=== PATIENT | male | born 1970 | race Two or more races ===

== ENCOUNTER 2017-03-28 13:03 | Emergency (ER) | payer SELFPAY ==
[~2017-03-28] VITALS: Ht 160 cm; Wt 91.0 kg
[2017-03-28] MEDS ORDERED: ONDANSETRON HCL 4MG/2ML VIAL IV STA (15:30)
[2017-03-28] MEDS ORDERED: FAMOTIDINE 20MG/2ML VIAL IV STA (15:30)
[2017-03-28] MEDS ORDERED: MORPHINE SULFATE 4 MG/ML CPJ (NOT FOR IM USE) IV STA (15:30)
[2017-03-28] MEDS ORDERED: SODIUM CHLORIDE 0.9% 1,000 ML IV ONE (15:30)
[2017-03-28 16:45] LABS: BASOPHILS % 0.4 % (0.0-2.0); HEMOGLOBIN. 12.6 g/dL (14.0-18.0); LYMPHOCYTES % 45.2 % (20.0-50.0); MEAN CORPUSCULAR HEMOGLOBIN 34.6 pg (28.0-32.0); MEAN CORPUSCULAR VOLUME 98.9 fL (80.0-94.0); MEAN PLATELET VOLUME 7.6 fl (7.4-10.4); MONOCYTES % 6.1 % (2.0-8.0); NEUTROPHILS % 47.3 % (40.0-76.0); PLATELET 236 x1000/uL (130-400); RED BLOOD CELL COUNT 3.64 mill/uL (4.7-6.1); RED CELL DISTRIBUTION WIDTH 13.3 % (11.6-14.6)
[2017-03-28 17:00] LABS: CARBON DIOXIDE 22 mEq/L (21-32); CHLORIDE 112 mEq/L (98-107); ETHANOL BLOOD 210 mg/dL
[2017-03-28 18:10] VITALS: BP 109/64
== END 2017-03-28 18:16 | disposition home or self-care (01) ==
LOC: ER 14:34
DX: K29.20 Alcoholic gastritis without bleeding (principal); F10.10 Alcohol abuse, uncomplicated; Y90.7 Blood alcohol level of 200-239 mg/100 ml; F17.200 Nicotine dependence, unspecified, uncomplicated
CPT/HCPCS: 36415; 76705; 80053; 83690; 85025; 96361; 96374; 96375; 99285; G0482; J2270; J2405; J3490; J7030; Z7610

== ENCOUNTER 2024-12-26 03:52 | Inpatient (IN) | payer SELFPAY ==
[~2024-12-26] VITALS: Ht 170.2 cm; Wt 106.7 kg
[2024-12-26 05:09] LABS: HEMATOCRIT. 39.4 % (42.0-52.0); HEMOGLOBIN. 13.6 g/dL (14.0-18.0); MEAN CORPUSCULAR HEMOGLOBIN 34.4 pg (28.0-32.0); MEAN CORPUSCULAR HGB CONC 34.4 g/dL (31.0-37.0); MEAN PLATELET VOLUME 7.1 fl (7.4-10.4); PLATELET 416 x1000/uL (130-400); RED BLOOD CELL COUNT 3.94 mill/uL (4.7-6.1); WHITE BLOOD COUNT 11.1 x1000/uL (4.5-11.0)
[2024-12-26 05:10] LABS: CHLORIDE 104 mEq/L (98-107); POTASSIUM 4.1 mEq/L (3.5-5.1); SODIUM 133 mEq/L (136-145)
[2024-12-26 05:12] LABS: CALCIUM 9.4 mg/dL (8.7-10.4); CARBON DIOXIDE 20 mEq/L (21-32)
[2024-12-26 05:17] LABS: CREATININE 0.9 mg/dL (0.6-1.3); GLUCOSE 164 mg/dL (70-105); UREA NITROGEN BLOOD 15 mg/dL (9-23)
[2024-12-26 05:18] LABS: DIFFERENTIAL COMMENT 1
[2024-12-26 05:41] LABS: CLARITY URINE CLOUDY (CLEAR); COLOR URINE YELLOW (YELLOW); GLUCOSE URINE NEGATIVE (NEGATIVE); KETONES URINE NEGATIVE (NEGATIVE); LEUKOCYTE ESTERASE URINE 3+ (NEGATIVE); NITRITE URINE NEGATIVE (NEGATIVE); OCCULT BLOOD URINE 1+ (NEGATIVE); PH URINE >=9.0 (4.5-8.0); PROTEIN URINE 1+ (NEGATIVE); SPECIFIC GRAVITY URINE 1.011 (1.005-1.030); UROBILINOGEN URINE 0.2 E.U./dL (0.2-1.0)
[2024-12-26 05:58] LABS: PLATELET ESTIMATE SLIGHTLY INCREASED
[2024-12-26] MEDS: PIPERACILLIN/TAZO 3.375G/50ML 50 ML IV ONE (06:05)
[2024-12-26] MEDS: SODIUM CHLORIDE 0.9% (SEPSIS BOLUS) IV ONE (06:05)
[2024-12-26 06:06] LABS: RBC URINE 0-2 /hpf (0-2)
[2024-12-26 06:07] LABS: BACTERIA URINE 3+; SQUAMOUS EPITHELIAL CELL URINE NONE SEEN /lpf (RARE/1+)
[2024-12-26 06:09] LABS: TRIPLE PHOSPHATE CRYSTAL URINE 1+ /lpf
[2024-12-26 06:26] LABS: CHLORIDE 105 mEq/L (98-107); POTASSIUM 3.9 mEq/L (3.5-5.1); SODIUM 135 mEq/L (136-145)
[2024-12-26 06:27] LABS: CARBON DIOXIDE 21 mEq/L (21-32)
[2024-12-26 06:28] LABS: CALCIUM 9.3 mg/dL (8.7-10.4)
[2024-12-26 06:32] LABS: CREATININE 0.9 mg/dL (0.6-1.3); GLUCOSE 142 mg/dL (70-105)
[2024-12-26 06:33] LABS: UREA NITROGEN BLOOD 14 mg/dL (9-23)
[2024-12-26 06:34] LABS: ALANINE AMINOTRANSFERASE 33 IU/L (10-49); ALBUMIN 4.6 g/dL (3.2-4.8); ASPARTATE AMINOTRANSFERASE 22 IU/L (<34)
[2024-12-26 06:35] LABS: BILIRUBIN DIRECT 0.3 mg/dL (<=3.0); BILIRUBIN TOTAL 0.9 mg/dL (0.1-1.0); PROTEIN TOTAL 8.1 g/dL (6.0-8.3)
[2024-12-26 06:43] LABS: LACTIC ACID 2.2 mmol/L (0.4-2.0); PROTHROMBIN TIME 10.9 sec (9.6-11.0)
[2024-12-26] MEDS: VANCOMYCIN 1G PREMIX 200 ML IV ONE (06:51)
[2024-12-26 09:55] VITALS: BP 148/66; PULSE 100; RESP 16; TEMP 36.6; O2SAT 98
[2024-12-26 12:00] VITALS: BP 177/83; PULSE 108; RESP 16; TEMP 36.9; O2SAT 98
[2024-12-26] MEDS ORDERED: IPRATROPIUM/ALBUTEROL 0.5-3(2.5)MG/3ML NEB HHN PRN (12:15)
[2024-12-26] MEDS ORDERED: ACETAMINOPHEN 325MG TABLET PO PRN (12:15)
[2024-12-26] MEDS ORDERED: ONDANSETRON HCL 4MG/2ML INJ IV PRN (12:15)
[2024-12-26] MEDS ORDERED: DOCUSATE SODIUM 100MG CAPSULE PO PRN (12:15)
[2024-12-26 12:19] VITALS: BP 148/68; PULSE 100; RESP 18; TEMP 36.6
[2024-12-26] MEDS: CLONIDINE 0.1MG TABLET PO PRN (12:47)
[2024-12-26] MEDS: TAMSULOSIN HCL 0.4MG SR CAPSULE PO SCH (12:47)
[2024-12-26] MEDS: FINASTERIDE 5MG TABLET PO SCH (12:47)
[2024-12-26 14:37] LABS: FOLIC ACID (FOLATE) SERUM 19.58 ng/mL (>5.38); VITAMIN B12 SERUM 420 pg/mL (211-911)
[2024-12-26] MEDS: CEFTRIAXONE 1GM/50ML 50 ML IV SCH (14:47)
[2024-12-26 16:00] VITALS: BP 134/65; PULSE 80; RESP 17; TEMP 37.4; O2SAT 96
[2024-12-26 20:00] VITALS: BP 128/69; PULSE 98; RESP 20; TEMP 36.4; O2SAT 100
[2024-12-26 21:38] VITALS: BP 128/69; PULSE 98; RESP 20; TEMP 36.4; O2SAT 100
[2024-12-27] VITALS: BP 94/58; PULSE 82; RESP 16; TEMP 36.3; O2SAT 100
[2024-12-27 04:00] VITALS: BP 134/80; PULSE 86; RESP 19; TEMP 36.4; O2SAT 97
[2024-12-27 06:20] LABS: CALCIUM 8.4 mg/dL (8.7-10.4); CARBON DIOXIDE 21 mEq/L (21-32); CHLORIDE 105 mEq/L (98-107); CREATININE 0.9 mg/dL (0.6-1.3); POTASSIUM 3.2 mEq/L (3.5-5.1); SODIUM 135 mEq/L (136-145)
[2024-12-27 06:24] LABS: GLUCOSE 121 mg/dL (70-105)
[2024-12-27 06:26] LABS: UREA NITROGEN BLOOD 14 mg/dL (9-23)
[2024-12-27 06:43] LABS: BASOPHILS % 0.4 % (0.0-2.0); EOSINOPHILS % 0.6 % (0.0-5.0); HEMATOCRIT. 31.1 % (42.0-52.0); HEMOGLOBIN. 10.9 g/dL (14.0-18.0); LYMPHOCYTES % 15.9 % (20.0-50.0); MEAN CORPUSCULAR HEMOGLOBIN 34.5 pg (28.0-32.0); MEAN CORPUSCULAR HGB CONC 34.9 g/dL (31.0-37.0); MEAN CORPUSCULAR VOLUME 98.8 fL (80.0-94.0); MEAN PLATELET VOLUME 7.6 fl (7.4-10.4); MONOCYTES % 11.8 % (2.0-8.0); NEUTROPHILS % 71.3 % (40.0-76.0); PLATELET 295 x1000/uL (130-400); RED BLOOD CELL COUNT 3.15 mill/uL (4.7-6.1); RED CELL DISTRIBUTION WIDTH 13.7 % (11.6-14.6); WHITE BLOOD COUNT 8.8 x1000/uL (4.5-11.0)
[2024-12-27 08:00] VITALS: BP 111/52; PULSE 81; RESP 18; TEMP 36.3; O2SAT 97
[2024-12-27 10:39] LABS: *AMPHETAMINES SCREEN URINE NEGATIVE (NEGATIVE); *BARBITURATES SCREEN URINE NEGATIVE (NEGATIVE); *BENZODIAZEPINES SCREEN URINE NEGATIVE (NEGATIVE); *COCAINE SCREEN URINE NEGATIVE (NEGATIVE); CANNABINOID URINE SCREEN NEGATIVE (NEGATIVE); ECSTASY MDMA SCREEN URINE NEGATIVE (NEGATIVE); METHADONE URINE SCREEN NEGATIVE (NEGATIVE); OPIATES URINE SCREEN NEGATIVE (NEGATIVE); PHENCYCLIDINE URINE SCREEN NEGATIVE (NEGATIVE)
[2024-12-27 12:00] VITALS: BP 114/60; PULSE 75; RESP 18; TEMP 36.7; O2SAT 98
[2024-12-27] MEDS: POTASSIUM CHLORIDE 20MEQ TABLET SR PO SCH (13:49)
[2024-12-27 16:00] VITALS: BP 121/61; PULSE 74; RESP 18; TEMP 36.4; O2SAT 97
[2024-12-27 20:00] VITALS: BP 114/60; PULSE 79; RESP 19; TEMP 36.4; O2SAT 98
[2024-12-28] VITALS: BP 106/84; PULSE 80; RESP 18; TEMP 37.4; O2SAT 96
[2024-12-28 04:00] VITALS: BP 109/82; PULSE 77; RESP 18; TEMP 37.2; O2SAT 97
[2024-12-28] MEDS: ACETAMINOPHEN 325MG TABLET PO PRN (04:25)
[2024-12-28 08:00] VITALS: BP 123/69; PULSE 87; RESP 16; TEMP 36.3; O2SAT 99
[2024-12-28 12:00] VITALS: BP 120/65; PULSE 83; RESP 18; TEMP 36.4; O2SAT 98
[2024-12-28 16:00] VITALS: BP 139/78; PULSE 98; RESP 18; TEMP 36.6; O2SAT 97
[2024-12-28] MEDS ORDERED: GADOTERATE MEGLUMINE 5 MMOL/10 ML VIAL IV ONE (17:44)
[2024-12-28 18:32] LABS: BASOPHILS % 0.5 % (0.0-2.0); EOSINOPHILS % 1.4 % (0.0-5.0); HEMOGLOBIN. 11.8 g/dL (14.0-18.0); LYMPHOCYTES % 22.5 % (20.0-50.0); MEAN CORPUSCULAR HEMOGLOBIN 34.2 pg (28.0-32.0); MEAN CORPUSCULAR HGB CONC 34.6 g/dL (31.0-37.0); MEAN CORPUSCULAR VOLUME 98.8 fL (80.0-94.0); MONOCYTES % 9.4 % (2.0-8.0); NEUTROPHILS % 66.2 % (40.0-76.0); PLATELET 321 x1000/uL (130-400); RED BLOOD CELL COUNT 3.44 mill/uL (4.7-6.1); RED CELL DISTRIBUTION WIDTH 13.4 % (11.6-14.6); WHITE BLOOD COUNT 6.4 x1000/uL (4.5-11.0)
[2024-12-28 18:36] LABS: CHLORIDE 106 mEq/L (98-107); POTASSIUM 3.3 mEq/L (3.5-5.1); SODIUM 137 mEq/L (136-145)
[2024-12-28 18:37] LABS: CARBON DIOXIDE 26 mEq/L (21-32)
[2024-12-28 18:38] LABS: CALCIUM 8.5 mg/dL (8.7-10.4)
[2024-12-28 18:42] LABS: CREATININE 0.7 mg/dL (0.6-1.3); GLUCOSE 140 mg/dL (70-105); UREA NITROGEN BLOOD 11 mg/dL (9-23)
[2024-12-28 20:00] VITALS: BP 128/64; PULSE 89; RESP 17; TEMP 36.9; O2SAT 100
[2024-12-29] VITALS: BP 112/63; PULSE 68; RESP 17; TEMP 36.6; O2SAT 100
[2024-12-29 04:00] VITALS: BP 125/61; PULSE 81; RESP 16; TEMP 36.9; O2SAT 100
[2024-12-29] MEDS ORDERED: PROPOFOL 200MG/20ML VIAL IV ONE (07:43)
[2024-12-29] MEDS ORDERED: MIDAZOLAM HCL 2 MG/2 ML VIAL ONE (07:43)
[2024-12-29] MEDS ORDERED: LIDOCAINE HCL/PF 1% 10 MG/ML 5ML VIAL ONE (07:43)
[2024-12-29] MEDS ORDERED: FENTANYL CITRATE/PF 50MCG/ML 2ML VIAL ONE (07:52)
[2024-12-29 08:00] VITALS: BP 139/78; PULSE 98; RESP 17; TEMP 36.6; O2SAT 97
[2024-12-29] MEDS ORDERED: NALOXONE HCL 0.4MG/ML 1ML VIAL IV PRN (08:45)
[2024-12-29] MEDS ORDERED: LABETALOL 5MG/ML 4ML INJ IV PRN (08:45)
[2024-12-29] MEDS ORDERED: ONDANSETRON HCL 4MG/2ML INJ IV PRN (08:45)
[2024-12-29] MEDS ORDERED: HYDROMORPHONE HCL/PF 1MG/ML INJ IV PRN (08:45)
[2024-12-29] MEDS: MEPERIDINE HCL/PF 25MG/ML CPJ IV PRN (09:46)
[2024-12-29 12:00] VITALS: BP 155/81; PULSE 82; RESP 18; TEMP 36.6; O2SAT 97
[2024-12-29 16:00] VITALS: BP 139/78; PULSE 98; RESP 18; TEMP 36.6; O2SAT 97
[2024-12-30] VITALS: BP 108/64; PULSE 98; RESP 17; TEMP 36.5; O2SAT 98
[2024-12-30 04:00] VITALS: BP 121/70; PULSE 68; RESP 21; TEMP 36.5; O2SAT 98
[2024-12-30 06:55] LABS: BASOPHILS % 0.4 % (0.0-2.0); EOSINOPHILS % 2.2 % (0.0-5.0); HEMATOCRIT. 35.6 % (42.0-52.0); HEMOGLOBIN. 12.2 g/dL (14.0-18.0); LYMPHOCYTES % 22.4 % (20.0-50.0); MEAN CORPUSCULAR HGB CONC 34.4 g/dL (31.0-37.0); MEAN CORPUSCULAR VOLUME 98.7 fL (80.0-94.0); MEAN PLATELET VOLUME 7.7 fl (7.4-10.4); MONOCYTES % 11.7 % (2.0-8.0); NEUTROPHILS % 63.3 % (40.0-76.0); PLATELET 299 x1000/uL (130-400); RED CELL DISTRIBUTION WIDTH 13.2 % (11.6-14.6)
[2024-12-30 07:10] LABS: CARBON DIOXIDE 24 mEq/L (21-32); CHLORIDE 103 mEq/L (98-107); POTASSIUM 3.5 mEq/L (3.5-5.1); SODIUM 138 mEq/L (136-145)
[2024-12-30 07:11] LABS: CALCIUM 8.8 mg/dL (8.7-10.4)
[2024-12-30 07:15] LABS: CREATININE 0.7 mg/dL (0.6-1.3); GLUCOSE 131 mg/dL (70-105)
[2024-12-30 07:16] LABS: UREA NITROGEN BLOOD 12 mg/dL (9-23)
[2024-12-30 08:00] VITALS: BP 123/74; PULSE 81; RESP 20; TEMP 36.3; O2SAT 97
[2024-12-30 12:00] VITALS: BP 134/67; PULSE 64; RESP 20; TEMP 36.2; O2SAT 97
[2024-12-30 16:00] VITALS: BP 134/69; PULSE 67; RESP 19; TEMP 36.3; O2SAT 98
[2024-12-30 20:00] VITALS: BP 135/68; PULSE 84; RESP 20; TEMP 36.6; O2SAT 97
[2024-12-31] VITALS: BP 119/71; PULSE 77; RESP 20; TEMP 36.6; O2SAT 97
[2024-12-31 04:00] VITALS: BP_SYST 124; PULSE 72; RESP 20; TEMP 36.2; O2SAT 97
[2024-12-31 08:00] VITALS: BP 143/78; PULSE 75; RESP 18; TEMP 36.3; O2SAT 96
[2024-12-31 12:00] VITALS: BP 116/68; PULSE 77; RESP 18; TEMP 36.6; O2SAT 98
[2024-12-31] MEDS ORDERED: LEVO750T68 MT (12:26)
[2024-12-31] MEDS ORDERED: FINA5TAB11 PO (12:26)
[2024-12-31] MEDS ORDERED: TAMS-54 PO (12:26)
[2024-12-31 15:34] VITALS: BP 116/68; PULSE 77; TEMP 97.9; O2SAT 98
== END 2024-12-31 16:00 | disposition home or self-care (01) | DRG 710 ==
LOC: ER 04:36 → 6WST 08:24 → EDBEDREQ 08:29 → EDBEDREQTM 08:29
PROVIDERS: ADMIT Family Medicine Adult Medicine; ATTEND Family Medicine Adult Medicine
PROC: 0V908ZZ Drainage of Prostate, Via Natural or Artificial Opening Endoscopic (ICD-10-PCS; principal; 2024-12-29)
DX: A41.9 Sepsis, unspecified organism (principal); E87.20 Acidosis, unspecified; K76.0 Fatty (change of) liver, not elsewhere classified; N39.0 Urinary tract infection, site not specified; I10 Essential (primary) hypertension; D53.9 Nutritional anemia, unspecified; E66.9 Obesity, unspecified; K86.1 Other chronic pancreatitis; N13.8 Other obstructive and reflux uropathy; N40.1 Benign prostatic hyperplasia with lower urinary tract symptoms; N41.2 Abscess of prostate; Z87.440 Personal history of urinary (tract) infections; Z90.79 Acquired absence of other genital organ(s); Z68.36 Body mass index [BMI] 36.0-36.9, adult
CPT/HCPCS: 36415; 71045; 72197; 74176; 80048; 80076; 80305; 81003; 82607; 82746; 82962; 83605; 84145; 85025; 86480; 86635; 86850; 86900; 93005; 93306; 99285; A9577; J0696; J2003; J2175; J2250; J2543; J2704; J3010; J3370; J7030